=== PATIENT | female | born 1955 | race Caucasian/White ===

== ENCOUNTER 2018-02-17 10:18 | Emergency (ER) | payer OTHER ==
[2018-02-17] MEDS: ACETAMINOPHEN 325 MG TAB PO (11:10)
== END 2018-02-17 12:41 | disposition home or self-care (01) ==
LOC: FTE 10:18
DX: S40.022A Contusion of left upper arm, initial encounter (principal); V49.9XXA Car occupant (driver) (passenger) injured in unspecified traffic accident, initial encounter
CPT/HCPCS: 73030; 73080-LT; 99284-25